=== PATIENT | male | born 2000 | race African-American/Black ===

== ENCOUNTER 2020-10-29 15:12 | Emergency (ER) | payer OTHER ==
[~2020-10-29] VITALS: Ht 185.4 cm; Wt 72.7 kg
[2020-10-29 15:14] VITALS: BP 140/93
[2020-10-29] MEDS ORDERED: ACETAMINOPHEN 500 MG TAB PO ONE (15:40)
[2020-10-29] MEDS ORDERED: MORPHINE 2 MG/ML 1ML VIAL (J2270) IV ONE (15:55)
[2020-10-29] MEDS ORDERED: ONDANSETRON 4MG/2ML VIAL IV ONE (15:55)
[2020-10-29] MEDS ORDERED: NS 1,000 ML IV ONE (15:55)
[2020-10-29 16:11] LABS: BASO % 0.6 % (0.0-1.0); EOS % 0.4 % (0.0-3.0); HEMATOCRIT 43.5 % (42.0-52.0); HEMOGLOBIN 14.5 g/dl (13.5-17.5); LYMPH # 1.6 10^3/uL (1.5-5.0); LYMPH % 31.8 % (24.0-44.0); MEAN CORPUSCULAR HEMOGLOBIN 31.4 pg (27.0-33.0); MEAN CORPUSCULAR HGB CONC 33.3 g/dl (32.0-36.5); MEAN CORPUSCULAR VOLUME 94.2 fl (80.0-96.0); MONO # 0.5 10^3/uL (0.0-0.8); MONO % 9.5 % (2.0-8.0); NEUTROPHILS # 2.8 10^3/uL (1.5-8.5); NEUTROPHILS % 57.3 % (36.0-66.0); PLATELET COUNT, AUTOMATED 282 10^3/uL (150-450); RED BLOOD COUNT 4.62 10^6/uL (4.30-6.10); WHITE BLOOD COUNT 4.9 10^3/uL (4.0-10.0)
[2020-10-29] MEDS ORDERED: ISOVUE-370 76% 100ML VIAL As Ordered ONE (16:13)
[2020-10-29 16:26] LABS: PARTIAL THROMBOPLASTIN TIME 23.9 SECONDS (24.2-38.5); PROTHROMBIN TIME 13.4 SECONDS (12.5-14.3)
--- NOTE | 2020-10-29 16:37 | REP ---
INDICATION: head trauma left frontal fork lift COMPARISON: None. TECHNIQUE: Axial noncontrast images from the skull base to the vertex with coronal reformations. This CT examination was performed using the following dose reduction techniques: Automated exposure control, adjustment of mA and/or kv according to the patient's size, and use of iterative reconstruction technique. FINDINGS: The ventricles, sulci, and cisterns are normal in position and appearance. Watson-white differentiation is maintained. No acute intracranial hemorrhage, mass/mass effect, pathology or trauma/injury. No evidence for acute infarction. No extra-axial fluid collection. Calvarium is intact. Mucoceles in the maxillary sinuses noted. IMPRESSION: Normal noncontrast head CT. No evidence for acute intracranial pathology or trauma/injury. <Electronically signed by Orlando Little > 10/29/20 [id number]
--- NOTE | 2020-10-29 16:38 | REP ---
INDICATION: head trauma left frontal fork lift COMPARISON: None. TECHNIQUE: Axial noncontrast images from the skull base to the thoracic inlet with coronal and sagittal re-formations This CT examination was performed using the following dose reduction techniques: Automated exposure control, adjustment of mA and/or kv according to the patient's size, and use of iterative reconstruction technique. FINDINGS: Normal alignment and lordosis is maintained. Cervical vertebral bodies including transverse processes and spinous processes are intact and there is no evidence for acute fracture / compression injury or subluxation. Spinal canal is patent. Posterior elements are intact. Paravertebral soft tissues are normal. IMPRESSION: Normal noncontrast cervical spine CT. No evidence for acute pathology or trauma/injury. <Electronically signed by Orlando Little > 10/29/20 [id number]
[2020-10-29 16:39] LABS: ALBUMIN 4.6 GM/DL (3.2-5.2); BILIRUBIN,DIRECT 0.2 MG/DL (0.0-0.2); BILIRUBIN,TOTAL 0.4 MG/DL (0.2-1.0); TOTAL PROTEIN 7.5 GM/DL (6.4-8.2)
--- NOTE | 2020-10-29 16:39 | REP ---
INDICATION: indent lateral bicep, bony pain , hit with forklift. COMPARISON: None. TECHNIQUE: There are three views. FINDINGS: Mineralization is normal. There is no fracture or dislocation. The acromioclavicular and glenohumeral articulations are unremarkable. There are no calcifications or foreign bodies. IMPRESSION: There is no fracture or dislocation. Otherwise, negative right shoulder. If symptoms persist or worsen consider MRI for follow-up. <Electronically signed by Titus Muñoz > 10/29/20 [id number]
--- NOTE | 2020-10-29 16:40 | REP ---
INDICATION: bony pain , hit with forklift COMPARISON: None. TECHNIQUE: There are 2 views. FINDINGS: There is no fracture or dislocation. Mineralization and joint spaces are normal. There are no calcifications or foreign bodies. IMPRESSION: Negative right forearm. <Electronically signed by Titus Muñoz > 10/29/20 [id number]
--- NOTE | 2020-10-29 16:43 | REP ---
INDICATION: hit in sternum with forklift, pain over supras notch sternum COMPARISON: None TECHNIQUE: Axial contrast enhanced images from the thoracic inlet to the upper abdomen with coronal and sagittal reformations using 75 ml Isovue 370 intravenous contrast material. This CT examination was performed using the following dose reduction techniques: Automated exposure control, adjustment of mA and/or kv according to the patient's size, and use of iterative reconstruction technique. FINDINGS: The bilateral lung berger are well aerated and clear. No consolidation/contusion, effusion, or pneumothorax. Tracheobronchial tree is patent. Mediastinum demonstrates normal thoracic aorta, pulmonary vasculature, and heart/pericardium. No mediastinal injury noted. No adenopathy. The surrounding musculoskeletal structures appear intact and without obvious bony or soft tissue injury. IMPRESSION: Normal contrast-enhanced chest CT. No acute process or trauma/injury. <Electronically signed by Orlando Little > 10/29/20 [id number]
[2020-10-29] MEDS ORDERED: methocarbamoL 750 MG TAB PO ONE (17:10)
[2020-10-29] MEDS ORDERED: NAPR-837 PO (17:52)
[2020-10-29] MEDS ORDERED: ANEC4CRE3 TOP (17:52)
[2020-10-29] MEDS ORDERED: ROBA750T4 PO (17:52)
== END 2020-10-29 18:12 | disposition home or self-care (01) ==
LOC: M ED 15:12
DX: S00.81XA Abrasion of other part of head, initial encounter (principal); S29.9XXA Unspecified injury of thorax, initial encounter; S40.022A Contusion of left upper arm, initial encounter; W22.8XXA Striking against or struck by other objects, initial encounter; Y92.89 Other specified places as the place of occurrence of the external cause; Y99.0 Civilian activity done for income or pay; F17.210 Nicotine dependence, cigarettes, uncomplicated
CPT/HCPCS: 70450; 71260; 72125; 73030; 73090; 80047; 80076; 85025; 85610; 85730; 86850; 86900; 86901; 96361; 96374; 96375; 99283; J2270; J2405; Q9967

== ENCOUNTER 2020-10-30 13:21 | Emergency (ER) | payer OTHER ==
[~2020-10-30 13:21] MED LIST: ANEC4CRE3 TOP; NAPR-837 PO; ROBA750T4 PO
[2020-10-30] MEDS ORDERED: IBUPROFEN 800 MG TAB PO ONE (13:45)
[2020-10-30 14:41] LABS: CK-MB VALUE MASS 1.7 NG/ML (<3.6); MB/CK RELATIVE INDEX 0.28 (< OR =4)
[2020-10-30 15:13] VITALS: BP 121/71
== END 2020-10-30 15:26 | disposition home or self-care (01) ==
LOC: EDBD 13:21 → M ED 13:21
DX: S40.021D Contusion of right upper arm, subsequent encounter (principal); X58.XXXD Exposure to other specified factors, subsequent encounter; Y92.89 Other specified places as the place of occurrence of the external cause